=== PATIENT | female | born 1995 | race Caucasian/White ===

== ENCOUNTER → 2017-04-01 | Outpatient (CLI) | payer MEDICAID ==
--- NOTE | 2017-04-02 09:15 | US ---
EXAMINATION: Bilateral breast ultrasound HISTORY: Bloody discharge, currently breast-feeding COMPARISON: None TECHNIQUE: Grayscale and color Doppler images obtained of the breasts bilaterally. FINDINGS: There is no abnormal mass or fluid collection identified bilaterally. There is prominent g landular tissue. No abnormal color Doppler flow. No skin thickening. No dilated ducts identified. IMPRESSION: No sonographic evidence identified bilaterally. If symptoms persists consider follow-up imaging.
== END | disposition home or self-care (01) ==
LOC: MW.MAM 12:50
PROVIDERS: ATTEND Family Medicine
DX: N64.52 Nipple discharge (principal)
CPT/HCPCS: 76641-50; 766415026